=== PATIENT | female | born 1960 | race Caucasian/White ===

== ENCOUNTER 2019-04-07 06:50 | Day surgery (SDC) | payer OTHER ==
[2019-04-07] VITALS (10 sets, daily range): BP systolic 87–121; BP diastolic 58–80; PULSE 85–110; RESP 15–47; Ht 162.6 cm; Wt 79.2 kg
[~2019-04-07] VITALS: Ht 162.6 cm; Wt 79.2 kg
[~2019-04-07 06:50] MED LIST: CEFAZOLIN 2 GM/50 ML (PMX) 50 ML IVPB ONE; NO MEDS; SOD CHLORIDE 0.9% 1,000 ML IV SCH
[2019-04-07] MEDS ORDERED: ISOSULFAN BLUE 1% 5 ML INJ SC ONE (09:36)
--- NOTE | 2019-04-07 10:04 | PREAC ---
Date/Time of Note Date/Time of Note DATE: 04/07/19 TIME: 10:01 Anesthesia Eval and Record Evaluation Time Pre-Procedure Interview DATE: 04/07/19 TIME: 10:01 Age 59 Sex female NPO: 8 hrs Preoperative diagnosis left breast cancer Planned procedure left needle localization partial mastectomy times 2 Past Medical History Past Medical History: Includes Pulm: Asthma Surgery & Anesthesia Issues Hx of PONV Meds Anticoagulation: No Beta Kavon within 24 hr: No Reason Beta Kavon not given: Pt. not on B-Kavon Reported Medications [No Meds] No Conflict Check 11/26/14 Current Medications Sodium Chloride 1,000 ml @ 75 mls/hr [id number] IV Last administered on 04/07/19at 09:26; Admin Dose 75 MLS/HR; Start 04/07/19 at 06:00; Stop 04/07/19 at 19:19 Meds reviewed: Yes Allergies Coded Allergies: No Known Allergy (Unverified , 04/06/19) Allergies Reviewed: Yes Labs/Studies Labs Reviewed: Reviewed by anesthesiologist test: N/A Studies: ECG (sr), CXR (LLlung opacities) Pre-procedure Exam Last vitals Vital Signs Date Temp Pulse Resp B/P (MAP) Pulse Ox O2 O2 Flow FiO2 Time Delivery Rate 04/07/19 99.3 85 18 105/80 94 Room Air 09:45 (88) Airway: Adequate mouth opening Mallampati: Mallampati I Teeth: Normal Lung: Normal Heart: Normal ASA Physical Status ASA physical status: 2 Emergency: None Planned Anesthetic General/MAC: ETT, LMA Planned Pain Management Parenteral pain med Pre-operative Attestations Prior to commencing anesthesia and surgery, the patient was re-evaluated, there was verification of: *The patient's identity *The results of appropriate recent lab work and preoperative vital signs *The above evaluation not changing prior to induction *Anesthetic plan, risk benefits, alternative and complications discussed with patient/family; questions answered; patient/family understands, accepts and wishes to proceed. BOGDAN MONAE MD April 07, 2019 10:04
[2019-04-07] MEDS ORDERED: MIDAZOLAM 1 MG/ML 2 ML INJ ONE (10:06)
[2019-04-07] MEDS ORDERED: METOCLOPRAMIDE 10 MG INJ ONE (10:12)
[2019-04-07] MEDS ORDERED: ONDANSETRON 4 MG INJ ONE (10:12)
[2019-04-07] MEDS ORDERED: FENTAnyl 50 MCG/ML VIAL ONE ×2 (10:12→10:20)
[2019-04-07] MEDS ORDERED: PROPOFOL 20 ML ONE (10:12)
[2019-04-07] MEDS ORDERED: CEFAZOLIN 1 GM INJ ONE (10:24)
[2019-04-07] MEDS ORDERED: HYDROmorphONE 2 MG/ML SYG ONE (10:25)
[2019-04-07] MEDS ORDERED: hydrALAzine 20 MG INJ IV PRN (10:30)
[2019-04-07] MEDS ORDERED: DIPHENHYDRAMINE 50 MG INJ IV PRN (10:30)
[2019-04-07] MEDS ORDERED: LABETALOL HCL 20MG INJ IV PRN (10:30)
[2019-04-07] MEDS ORDERED: HYDROmorphONE 1 MG/5 ML IV SYRINGE IV PRN ×3 (10:30)
[2019-04-07] MEDS ORDERED: MEPERIDINE 25 MG INJ IV PRN (10:30)
[2019-04-07] MEDS ORDERED: FENTAnyl 50 MCG/ML VIAL IV PRN ×3 (10:30)
[2019-04-07] MEDS ORDERED: ONDANSETRON 4 MG INJ IV PRN (10:30)
[2019-04-07] MEDS ORDERED: OXYCODONE/ACETAMINOPHEN (5/325) TAB PO PRN ×2 (10:30)
--- NOTE | 2019-04-07 11:08 | SIPON ---
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
[2019-04-07] MEDS ORDERED: HYDROCODONE/APAP (7.5/325) TAB PO PRN (11:30)
[2019-04-07] MEDS ORDERED: EPHEDrine 25 MG/5 ML SYG ONE (12:09)
--- NOTE | 2019-04-07 15:17 | OPR ---
DATE OF OPERATION: 04/07/2019 PREOPERATIVE DIAGNOSIS: Left breast lesions x2. POSTOPERATIVE DIAGNOSIS: Left breast lesions x2. PROCEDURE: Excision of left breast lesion x2. ANESTHESIA: General. ANESTHESIOLOGIST: Grecia Elizabeth MD SURGEON: Jeremiah Leone MD SECOND HAND: Gopi Rothman MD INDICATIONS FOR PROCEDURE: The patient is a 59-year-old female who underwent screening mammography. She was found to have 2 separate lesions within the left breast, 1 at the 12 o'clock location and 1 at 4 o'clock location. 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 The second revealed diagnosis of papillary lesion. Therefore, the patient required removal of both lesions and I discussed the case with attending radiologist, Dr. Jp Mcmillan. He stated that the lesions were by approximately 4 cm and may possibly be amenable to a single excis ion using 2-wire bracketing technique. The patient consented and was scheduled for surgery. DESCRIPTION OF PROCEDURE: On the morning of surgery, the patient presented to [facility] where she underwent localization of the lesions performed by Dr. Mcmillan. Subs equently, she was brought to the operating theater, placed under general anesthesia. The left breast was prepped and draped in usual sterile fashion. A curvilinear incision was made from approximately the 12 o'clock location to the 4 o'clock location approximately 3 cm from nipple-areolar border. Ruggiero bcutaneous tissue was dissected with cautery. Skin edges were then elevated and wide circumferential dissection of the tissue associated with both wires then took place, taking great care to ensure dee quate margin. Dissection was continued down to the pectoralis major fascia. Specimen was then trans ected off of the muscle and removed and oriented and sent for radiographic confirmation of both lesio ns. Confirmation of capture was confirmed. Specimen was then sent for permanent pathologic analysis . The wound was irrigated. Residual bleeding was controlled with cautery. A #10 [place]-Pra tt drain was then brought through the left mid axillary line, cut to size and laid within the wound c avity. It was secured in place with 2-0 nylon suture in a standard fashion. The skin was then reapp roximated with deep dermal layer of 4-0 Vicryl sutures in interrupted fashion, followed by final skin approximation with 5-0 PDS sutures in subcuticular fashion and benzoin and Steri-Strips were applied . The patient tolerated the procedure well. The estimated blood loss was approximately 20 mL. Ther e were no complications and the patient was transported in stable condition to the recovery room wher e circumferential compression dressing was applied. Dictated By: JEREMIAH PEREZ/ADRIANNE Conf#: [id number] DID#: [id number]
--- NOTE | 2019-04-07 18:38 | PAC ---
Date/Time of Note Date/Time of Note DATE: 04/07/19 TIME: 18:37 Post-Anesthesia Notes Post-Anesthesia Note Last documented vital signs Vital Signs Date Temp Pulse Resp B/P (MAP) Pulse Ox O2 O2 Flow FiO2 Time Delivery Rate 04/07/19 98.4 86 16 96/61 (73) 97 13:02 04/07/19 Room Air 11:57 04/07/19 8.0 11:37 Activity: WNL Respiratory function: WNL Cardiovascular function: WNL Mental status: Baseline Pain reasonably controlled: Yes Hydration appropriate: Yes Nausea/Vomiting absent: No BOGDAN MONAE MD April 07, 2019 18:38
== END 2019-04-07 14:13 | disposition home or self-care (01) ==
LOC: SDS 06:50
PROVIDERS: ATTEND Surgery Surgical Oncology
DX: D05.12 Intraductal carcinoma in situ of left breast (principal); N60.12 Diffuse cystic mastopathy of left breast; J45.909 Unspecified asthma, uncomplicated
CPT/HCPCS: 19120; 88307; J0690; J1170; J2250; J2405; J2765; J3010; Q9968